=== PATIENT | female | born 1990 | race Caucasian/White ===

== ENCOUNTER 2019-10-08 06:48 | Outpatient (CLI) | payer OTHER ==
--- NOTE | 2019-10-08 09:45 | Ultrasound Report ---
PROCEDURE: Pelvic w/Transvaginal INDICATIONS: UTERUS FIBROIDS TECHNIQUE: Real-time scanning was performed of the pelvic organs, with image documentation. Additional endovagi nal scanning was necessary due to incomplete visualization of the adnexal and endometrial structures by transabdominal scanning. COMPARISON: None. FINDINGS: Transabdominal scanning: Limited scanning through the kidneys shows no hydronephrosis. No pathologi c free abdominal or pelvic fluid. Endovaginal scanning: Uterus: Uterus is normal in size at 8.7 x 5.7 x 4.9 cm. There is a fundal posterior subserosal focu s of heterogeneous echogenicity measuring 35 x 27 x 31 mm. A similar-appearing focus in the mid anter ior subserosal region is identified measuring 22 x 18 x 21 mm. A third focus in the anterior lower ut erine subserosal segment is identified measuring 25 x 19 x 26 mm. The endometrium measures 4.3 mm in combined thickness. Ovaries: Right ovary measures 34 x 22 x 15 mm. Arterial and venous flow are identified. Less than 12 follicles are present. Left ovary measures 27 x 24 x 19 mm. Multiple follicles are identified. IMPRESSION: 1. Foci of heterogeneous echogenicity within the uterus suggestive of fibroids. Reviewed by: Analy Ann MD on 10/08/2019 9:44 AM PDT Approved by: Analy Ann MD on 10/08/2019 9:44 AM PDT Station ID: [id number]
== END 2019-10-08 06:49 | disposition home or self-care (01) ==
LOC: DI 06:48
PROVIDERS: ATTEND Obstetrics & Gynecology
DX: D25.9 Leiomyoma of uterus, unspecified (principal)
CPT/HCPCS: 76830; 76856

== ENCOUNTER 2019-10-14 11:20 | Outpatient (CLI) | payer OTHER ==
[2019-10-14 12:28] LABS: BASOPHILS % (AUTO) 0.6 %; EOSINOPHILS # (AUTO) 0.2 10^3/uL (0.0-0.7); EOSINOPHILS % (AUTO) 2.6 %; LYMPHOCYTES # (AUTO) 2.5 10^3/uL (1.5-3.5); LYMPHOCYTES % (AUTO) 36.2 %; MEAN CORPUSCULAR HEMOGLOBIN 33.4 pg (27.0-31.0); MEAN CORPUSCULAR HGB CONC 34.9 g/dL (32.0-36.0); MEAN CORPUSCULAR VOLUME 95.8 fL (81.0-99.0); MEAN PLATELET VOLUME 10.1 fL (7.9-10.8); MONOCYTES # (AUTO) 0.5 10^3/uL (0.0-1.0); MONOCYTES % (AUTO) 7.2 %; NEUTROPHILS # (AUTO) 3.7 10^3/uL (1.5-6.6); NEUTROPHILS % (AUTO) 53.1 %; PLT - PLATELET COUNT 323 10^3/uL (130-450); RED BLOOD COUNT 4.79 10^6/uL (4.20-5.40); WHITE BLOOD COUNT 6.9 x10^3/uL (4.8-10.8)
== END 2019-10-14 11:21 | disposition home or self-care (01) ==
LOC: LAB 11:20
PROVIDERS: ATTEND Obstetrics & Gynecology
DX: Z01.812 Encounter for preprocedural laboratory examination (principal); N94.6 Dysmenorrhea, unspecified; N87.1 Moderate cervical dysplasia; D25.9 Leiomyoma of uterus, unspecified; Z20.828 Contact with and (suspected) exposure to other viral communicable diseases
CPT/HCPCS: 81599; 85025

== ENCOUNTER 2019-10-16 08:53 | Day surgery (SDC) | payer OTHER ==
--- NOTE | 2019-10-14 11:21 | CONSULTATION NOTE ---
Consultation Report: I saw this young lady today in the pre-anesthesia office. She has a family history of Malignant Hyperthermia on her fathers side. She reports that she herself has never had any problems. She has had removal of "uterine fibroids" in 2017 at [facility] and did not have any anesthesia related complications. But, she does not know the type of anesthetic that was used. We will try to get the records from [facility]. If in case we are unable to obtains her previous anesthetic history, we will proceed with Total IV Anesthetic. I discussed the option of total IV anesthetic and avoiding all MH triggering agents. She very healthy otherwise.
[~2019-10-16 08:53] MED LIST: ACETAMINOPHEN 1,000 MG/100 ML 100 ML IV ONE; CEFAZOLIN SODIUM IN 0.9 % NACL 2 GM/100 ML BAG IV ONE; CELECOXIB 100 MG CAPSULE PO ONE; GABAPENTIN 400 MG CAPSULE ONE
[2019-10-16] MEDS ORDERED: ONDANSETRON 4 MG/2 ML VIAL IVP ONE (08:54)
[2019-10-16] MEDS ORDERED: GLYCOPYRROLATE 1 MG/5 ML VIAL IVP ONE (08:54)
[2019-10-16] MEDS ORDERED: HYDROmorphone 1 MG/ML CARPUJECT IVP ONE (08:54)
[2019-10-16] MEDS ORDERED: DEXAMETHASONE 4 MG/ML VIAL IVP ONE (08:54)
[2019-10-16] MEDS ORDERED: fentaNYL 100 MCG/2 ML VIAL IVP ONE (08:54)
[2019-10-16] MEDS ORDERED: SUGAMMADEX 200 MG/2 ML VIAL IVP ONE (08:54)
[2019-10-16] MEDS ORDERED: diphenhydrAMINE INJ 50 MG/ML VIAL IVP ONE (08:54)
[2019-10-16] MEDS ORDERED: ROCURONIUM 50 MG/5 ML VIAL IVP ONE (08:54)
[2019-10-16] MEDS ORDERED: PROPOFOL 200 MG/20 ML VIAL IVP ONE (08:54)
[2019-10-16] MEDS ORDERED: LIDOCAINE-MPF 2% 5 ML VIAL IM ONE (08:54)
[2019-10-16] MEDS ORDERED: MIDAZOLAM 2 MG/2 ML VIAL IVP ONE (08:54)
[2019-10-16] MEDS ORDERED: LACTATED RINGERS 1,000 ML IV ONE ×2 (08:57→15:39)
[2019-10-16 09:21] LABS: HCG UR QUAL NEGATIVE
--- NOTE | 2019-10-16 09:35 | ANESTHESIA ---
Pre-Anesthesia VS, & Labs - Diagnosis dysmenorrhea, fibroids - Procedure total laparoscopic hysterectomy Vital Signs: Temp Pulse Resp BP Pulse Ox 37.2 C 103 H 18 115/77 97 10/16/19 09:02 10/16/19 09:02 10/16/19 09:02 10/16/19 09:02 10/16/19 09:02 Height 5 ft 7 in Weight (kg) 79.5 kg - NPO >8 hours - Is Patient ?: No - Lab Results Current Lab Results: Laboratory Tests 10/16/19 09:15: POC Whole Bld Glucose 93 Home Medications and Allergies Fluticasone [Flonase] 1 sprays WALTER DAILY 10/14/19 Allergies/Adverse Reactions: Allergies Allergy/AdvReac Type Severity Reaction Status Date / Time cefprozil [From Cefzil] Allergy colitis Verified 10/14/19 10:03 cefuroxime [From Ceftin] Allergy colitis Verified 10/14/19 10:03 codeine Allergy Rash Verified 10/14/19 10:03 latex Allergy Respiratory Verified 10/14/19 10:03 Anes History & Medical History - Anesthetic History Anesthesia Complications: reports: No previous complications, Other-see comment (MH precautions with each one, positive FH via uncle) Family history of Malignant Hyperthermia: Reports (uncle) - Medical History Cardiovascular: reports: None Pulmonary: reports: Asthma (childhood) Gastrointestinal: reports: None Urinary: reports: None Musculoskeletal: reports: None Endocrine/Autoimmune: reports: None Skin: reports: None - Surgical History General: Colonoscopy Gynecologic: Other Exam General: Alert, Oriented x3 Dental: WNL Mouth Opening: Greater than 4 Fingerbreadths Neck Mobility: Normal Mallampati classification: I Thyromental Distance: greater than 6 cm Respiratory: Lungs clear Cardiovascular: Regular rate Plan Anesthesia Type: General Consent for Procedure(s) Verified and Reviewed: Yes Code Status: Attempt Resuscitation ASA classification: 1-Healthy patient Is this case an emergency?: No
[2019-10-16] MEDS ORDERED: LIDOCAINE 1%-EPI 1:100000 20 ML MDV SUBQ ONE ×2 (09:37)
[2019-10-16] MEDS ORDERED: BUPIVACAINE 0.5% PF 30 ML VIAL INFIL ONE ×2 (09:37)
[2019-10-16] MEDS ORDERED: LIDOCAINE 1%-EPI 1:100000 20 ML MDV ONE (09:55)
[2019-10-16] MEDS ORDERED: BUPIVACAINE 0.5% PF 30 ML VIAL ONE (09:55)
--- NOTE | 2019-10-16 10:20 | HISTORY & PHYSICAL EXAMINATION ---
HPI - History of Present Illness HPI Comment/Other: Heike Dorsey is a 28-year-old G0 here for a preop assessment for hysterectomy and cystoscopy. The patient was last seen in clinic on 09/10/2019 for a colposcopy. She has a long history of cervical dysplasia for which she underwent a LEEP in 2016. She has had abnormal Pap smears dating back to 2007. Her last Pap smear was followed with a colposcopy and that biopsy returned back with HARRY 1. She also has a long history of fibroids and dysfunctional uterine bleeding as well as ongoing pelvic pain. She had a hysteroscopic myomectomy several years ago. She has also undergone a laparoscopic resection of a dermoid cyst as well as a laparoscopic ablation of endometriosis. She has been requesting a hysterectomy for several years, but has been denied by multiple providers because she is nulligravid. As a result, her had a vasectomy because she does not desire childbearing and never has desired childbearing. After an extensive discussion at her prior visit and over the phone prior to this visit, the patient reports that she would like to have definitive management for persistent cervical dysplasia and chronic pelvic pain with a hysterectomy. She is clear that she does not desire childbearing and never has. She vocalizes understanding that she will be rendered incapable of after this procedure and she is not bothered by this fact. She has had a pelvic ultrasound on 10/07/2019 to assess her uterine structure. Uterus was normal size at 8.7 x 5.7 x 4.9 cm. She did have some subserosal fibroids, the largest is 3.5 cm in greatest dimension. No changes in health history since the time of prior exam other than as noted. Allergies: CODEINE (Critical) * SEPTIN (Critical) CEPACOL (Critical) * LATEX (Critical) Medications: CRYSELLE-28 0.3-30 MG-MCG ORAL TABLET (NORGESTREL-ETHINYL ESTRADIOL) Take one tablet by mouth once daily; Route: ORAL Problems: Preop exam (ICD-V72.84) (OFK05-T96.818) Fibroids, uterus (ICD-218.9) (ZNQ68-L18.9) HPV (ICD-079.4) (MKL58-X01.7) Cervical dysplasia, moderate (ICD-622.12) (ORC74-V98.1) Papanicolaou smear of cervix with low grade squamous intraepithelial lesion (LGSIL) (ICD-795.03) (ACC22-R03.612) Well woman exam (ICD-V72.3) (WRR84-E38.00) Risk Factors: Smoked Tobacco Use: Never smoker Smokeless Tobacco Use: Never Passive Smoke Exposure: no HIV High Risk Behavior: no Caffeine Use: 2 drinks per day Exercise: yes Times/wk: 5 Type of Exercise: various, walking, hiking, biking, weights Seatbelt Use: 100 % Sun Exposure: frequently Alcohol Use: yes Type: beer, wine Drinks per day: social Drug Use: no Vital Signs: Patient Profile: 28 Years Old Female Height: 67 inches Weight: 175 pounds BMI: 27.51 BP sittin / 73 Cuff size: regular Vitals Entered By: MARGARET Dawn (October 08, 2019 10:02 AM) Meds Reviewed: Done Allergies Reviewed: Done Questionnaire Would you like to become in the next year? No Are you currently using contraception? Yes Education provided to patient? Yes Completed by: joaquín Current contraception: Vasectomy End Method: Female sterilization, Vasectomy Past Medical History: History of ovarian teratoma Endometriosis Cervical dysplasia Past Surgical History: Laparoscopic ovarian cystectomy Laparoscopic ablation of endometriosis 2016 hysteroscopic myomectomy 2016 LEEP JOURNEYMAN MILLWRIGHT Review of Systems ROS Comments: As per HPI, otherwise remaining systems are negative. Physical Constitutional: No apparent distress. Head: Normocephalic and atraumatic. Eyes: No scleral icterus or conjunctival injection. Neck: No thyromegaly or cervical/supraclavicular lymphadenopathy. Cardiovascular: Regular rate and rhythm. Respiratory: Clear to auscultation bilaterally with normal respiratory effort. Abdomen: Soft, nontender, and nondistended. Extremities: Extremites are warm and well perfused with no lower extremity edema. Neurologic: Alert and oriented. Normal gait and coordination. Psych: Bright and reactive affect. Vagina: Pelvic exam was performed at prior visit. To recap, she had normal external female genitalia with normal Bartholin's, Ismay's, urethral meatus, and anus. Vagina was rugated, pink without abnormal lesions or discharge. Cervix: Cervix was nulliparous without lesions or discharge. Uterus: Uterus was small, mobile, and nontender. Adnexa: No adnexal masses or tenderness. Problem # 1: Preop Exam. We had an extensive discussion regarding the risks, benefits, and alternatives of the procedure. We will proceed with laparoscopic hysterectomy, likely a total laparoscopic hysterectomy with cystoscopy. Reviewed risks, benefits, and alternatives of the procedure. Risks include but are not limited to bleeding, infection, damage to nearby tissue and organs. We reviewed that on average blood loss is fairly minimal, but under certain circumstances it can be substantial enough that we may desire or recommend blood transfusion for her clinical well- being. We emphasized that we do take this decision lightly. Nationwide risks of blood transfusion include transmission of HIV is 1 in 2 million, risk of hepatitis is 1 in 1 million. These are very low risks. What is more common is almost like an allergic reaction to the proteins in the blood that we cannot match the patient to completely. This can look like difficulty breathing, hives, fever. This could be treated with medications as a rare outcome, but she should be aware that it exists. Infection risk is moderate given clean contaminate nature of the procedure and IV antibiotics will be given. Problem # 2: Preop Exam. Damage to nearby tissue and organs include risks to bladder, bowel, ureters, blood vessels, and nerves. Damage may be noted intraop at which point we would repair any damage in the moment which may result in a more complicated postoperative course. We reviewed that some injuries are not apparent until after the procedure at which point the patient would develop symptoms and may require return to the operating room. Again, reiterated that these are rare outcomes but she must be aware that they are possibilities. We also reviewed that we will be performing a cystoscopy to look at the integrity of the bladder and ureteral function after the procedure is completed. We also discussed that during her recovery period, she will be undergoing pelvic rest for 6 weeks and she will be restricted from limiting more than 10 pounds for 4 weeks. The patient signed [facility] consents regarding the fact that she will be compromising her fertility with this procedure. Again, she reiterated her confidence in moving forward with hysterectomy at this time. Written informed consents were obtained. She was provided with preoperative ord ers. We will proceed to the OR on October 16, 2019. Current Allergies: CODEINE (Critical) * SEPTIN (Critical) CEPACOL (Critical) * LATEX (Critical) Current Meds: CRYSELLE-28 0.3-30 MG-MCG ORAL TABLET (NORGESTREL-ETHINYL ESTRADIOL) Take one tablet by mouth once daily; Route: ORAL PMH/PSH - Past Medical History Cardiovascular: positive: None Respiratory: positive: Asthma (childhood) Endocrine/Autoimmune: positive: None GI: positive: None : positive: None HEENT: positive: Chronic vision loss Musculoskeletal: positive: None Derm: positive: None MRSA Hx?: No - Past Surgical History General: positive: Colonoscopy /JOURNEYMAN MILLWRIGHT: positive: Other Meds/Allgy - Home Medications Home Medications: Ambulatory Orders Medication Instructions Recorded Confirmed Fluticasone [Flonase] 1 sprays WALTER DAILY 10/14/19 - Allergies Allergies/Adverse Reactions: Allergies Allergy/AdvReac Type Severity Reaction Status Date / Time cefprozil [From Cefzil] Allergy colitis Verified 10/14/19 10:03 cefuroxime [From Ceftin] Allergy colitis Verified 10/14/19 10:03 codeine Allergy Rash Verified 10/14/19 10:03 latex Allergy Respiratory Verified 10/14/19 10:03 Exam - Vital Signs Vital Signs: Vital Signs x48h Temp Pulse Resp BP Pulse Ox 10/16/19 09:02 99.0 F 103 H 18 115/77 97 Results - Lab Results Other Lab Results: Lab Results x24hrs 10/16/19 10/16/19 Range/Units 09:15 09:00 POC Whole Bld Glucose 93 (70 - 100) mg/dL Ur Specific Roach 1.020 (1.002-1.030) Urine HCG, Qual NEGATIVE
[2019-10-16] MEDS ORDERED: METHYLENE BLUE 0.5% 50 MG/10 ML AMPULE ONE (11:27)
[2019-10-16] MEDS ORDERED: METHYLENE BLUE 0.5% 50 MG/10 ML AMPULE IR ONE (11:53)
[2019-10-16] MEDS ORDERED: SUGAMMADEX 500 MG/5 ML VIAL IVP ONE ×2 (15:11→15:12)
[2019-10-16] MEDS ORDERED: KETOROLAC 30 MG/ML VIAL IVP PRN (16:39)
[2019-10-16] MEDS ORDERED: SODIUM CHLORIDE FLUSH 0.9% 10 ML SYRINGE IVP PRN (16:39)
[2019-10-16] MEDS ORDERED: ONDANSETRON 4 MG/2 ML VIAL IVP PRN (16:42)
[2019-10-16] MEDS ORDERED: PHENOL THROAT SPRAY 177 ML MM PRN (16:42)
--- NOTE | 2019-10-16 16:46 | OPERATIVE REPORT ---
Operative Report - General Procedure Date: 10/16/19 Planned Procedure: Total laparoscopic hysterectomy vs laparoscopic assisted vaginal hysterectomy and bilateral salpingectomy with cystoscopy Pre-Op Diagnosis: Advanced cervical dysplasia and chronic pelvic pain Procedure Performed: Laparoscopic assisted vaginal hysterectomy and bilateral salpingectomy with cystoscopy Post Op Diagnosis: Same - Procedure Note Primary Surgeon: Bruna Lea MD Secondary Surgeon: Marlen Schmidt MD Anesthesia Provider: Francheska Amin CRNA Anesthesia Technique: General ET tube Pathology: Uterus and fallopian tubes IV Fluids (mL): 1,600 Estimated Blood Loss (mL): 150 Urine Output (mL): 400 Indications: Heike Dorsey is a 28-year-old G0 here for a preop assessment for hysterectomy and cystoscopy. The patient was last seen in clinic on 09/10/2019 for a colposcopy. She has a long history of cervical dysplasia for which she underwent a LEEP in 2016. She has had abnormal Pap smears dating back to 2007. Her last Pap smear was followed with a colposcopy and that biopsy returned back with HARRY 1. She also has a long history of fibroids and dysfunctional uterine bleeding as well as ongoing pelvic pain. She had a hysteroscopic myomectomy several years ago. She has also undergone a laparoscopic resection of a dermoid cyst as well as a laparoscopic ablation of endometriosis. She has been requesting a hysterectomy for several years, but has been denied by multiple providers because she is nulligravid. As a result, her had a vasectomy because she does not desire childbearing and never has desired childbearing. After an extensive discussion at her prior visit and over the phone prior to this visit, the patient reports that she would like to have definitive management for persistent cervical dysplasia and chronic pelvic pain with a hysterectomy. Findings: Enlarged uterus with fibroids on serosal. Normal left tube and ovary. Right tube was adherent to the infundibulo-pelvic ligament and the right ovary had a simple/physiologic cyst. Normal survey of the pelvic with normal appendix. Post procedural cystoscopy showed bilateral ureteral jets and intact bladder mucosa without evidence of suture or trauma. Complications: none - Other Other Information/Narrative: Risks benefits and alternatives of the procedure were reviewed. Consent was again confirmed. Patient was brought to the operating room and underwent general anesthesia. She was placed in dorsal lithotomy position with legs resting in yellowfin stirrups. SCDs were in place and activated. Cefazolin 2 g IV was administered prior to start of procedure. She was prepped and draped in the usual sterile fashion. Surgical timeout was performed. Bimanual exam was performed. Sterile speculum was placed and Promotional Representative uterine manipulator was placed, confirming that the inner cup was flush with the vaginal fornices. A total of 50 cc of dilute methylene blue was backfilled into the Olmstead catheter and the catheter was clamped. The base of the umbilicus was anesthetized with intradermal injection of 0.25% Marcaine. A 5 mm skin incision was made with a scalpel. A 5 mm blunt trocar was inserted under direct visualization using Webtabort. Once the port was confirmed to be placed intraperitoneally, the abdomen was insufflated to 15 mmHg with CO2 gas Exploration of the abdomen and pelvis was confirmed that no injury was sustained with placement of the trocar. Two additional 5 mm ports were placed in the right and left lower quadrants, taking care to avoid the epigastric arteries, while under direct visualization via laparoscopic guidance. The abdomen was explored with the laparoscope, with findings as noted. Ureters were identified bilaterally. The left Fallopian tube was grasped and elevated and resected from the underlying mesosalpinx with the LigaSure bipolar sealing and cutting device. The uterine ovarian ligament was transected using the LigaSure bipolar device. A bladder flap was mobilized by dividing the round ligaments using the bipolar cutting forceps, and the peritoneum on the vesicouterine fold was incised to mobilize the bladder. Once the colpotomy ring was skeletonized and in position, the uterine arteries were sealed using the bipolar forceps at the level of the colpotomy ring. This was repeated on the right aspect of the uterus in the same manner aside form the fact the right tube was adherent to the infundibulopelvic ligament. The tube was transected at the isthmus and the distal portion of the tube was carefully dissected off the ovary and IP moving from proximal to distal end. It was removed from the surgical field through the laparoscopic port. It w as set aside and later sent with the uterus to pathology. Colpotomy was performed using the monopolar hook, resulting in separation of the uterus and attached tubes. The right tube had been transected and removed separately through a lateral port as noted above. The uterus and left tube were then delivered through the vagina. Attention was then turned to the vaginal cuff closure. A 10 mm port was placed at the right lateral port site. A second 5 mm laparoscopic port was placed on the right lateral side of the abdomen. V-lock suture was passed into the pelvis through the 10 mm port. The vaginal cuff was closed with a running suture. The depth of the closure was not adequate per surgeon's assessment. The closure was then reinforced with a vaginal closure. A weighted speculum was placed in the vagina. Long Allis clamps were used to grasp the edges of the vaginal cuff. The vaginal cuff closure was then reinforced fashion using interrupted piqxxl-vz-duart suture using 0 Vicryl. Good hemostasis was noted. We again returned to the abdominal surgical field after removing outer gloves. The abdomen was again insufflated. The vaginal cuff was visualized internally and noted to have good hemostasis. The right lateral pelvic sidewall was raw in appearance but had no active bleeding. In an abundance of caution, Surgicel was applied to the left lateral pelvic sidewall. Good hemostasis was noted. The abdomen was partially desufflated. Pedicles were observed under decreased pressure and good hemostasis was again confirmed. We then performed a cystoscopy. Cystoscope was inserted through the urethra and the bladder was insufflated with normal saline. Bilateral ureteral jets were observed. Survey of the bladder showed the mucosa to be devoid of suture or trauma. Bladder was drained and cystoscope was removed. All instruments were removed from the abdomen. Skin was closed with interrupted subcuticular stitches using 4-0 Monocryl. Dermabond was applied over the suture sites. The final sponge needle and instrument counts were correct at completion of the procedure patient was awakened taken to the postanesthesia care unit in stable condition. Dr. Schmidt assisted with the camera, retraction, and the right sided portion of the hysterectomy.
[2019-10-16] MEDS: ACETAMINOPHEN 500 MG TABLET PO SCH (17:52)
[2019-10-16] MEDS: SODIUM CHLORIDE FLUSH 0.9% 10 ML SYRINGE IVP SCH (18:09)
[2019-10-16] MEDS: oxyCODONE 5 MG TABLET PO PRN (23:07)
[2019-10-17] MEDS: ACETAMINOPHEN 500 MG TABLET PO SCH ×2 (00:35→08:50)
[2019-10-17] MEDS: SODIUM CHLORIDE FLUSH 0.9% 10 ML SYRINGE IVP SCH ×2 (00:36→08:13)
[2019-10-17] MEDS ORDERED: IBUPROFEN 600 MG TABLET PO PRN (01:05)
[2019-10-17 05:29] LABS: BASOPHILS # (AUTO) 0.1 10^3/uL (0.0-0.1); BASOPHILS % (AUTO) 0.3 %; HGB - HEMOGLOBIN 13.8 g/dL (12.0-16.0); LYMPHOCYTES # (AUTO) 1.8 10^3/uL (1.5-3.5); MEAN CORPUSCULAR HEMOGLOBIN 33.3 pg (27.0-31.0); MEAN CORPUSCULAR HGB CONC 34.7 g/dL (32.0-36.0); MEAN CORPUSCULAR VOLUME 95.9 fL (81.0-99.0); MEAN PLATELET VOLUME 10.2 fL (7.9-10.8); MONOCYTES # (AUTO) 1.1 10^3/uL (0.0-1.0); MONOCYTES % (AUTO) 6.4 %; NEUTROPHILS # (AUTO) 14.4 10^3/uL (1.5-6.6); NEUTROPHILS % (AUTO) 82.6 %; PLT - PLATELET COUNT 287 10^3/uL (130-450); RED BLOOD COUNT 4.15 10^6/uL (4.20-5.40); RED CELL DISTRIBUTION WIDTH 11.9 % (12.0-15.0); WHITE BLOOD COUNT 17.5 x10^3/uL (4.8-10.8)
[2019-10-17] MEDS: oxyCODONE 5 MG TABLET PO PRN ×2 (08:12→11:31)
[2019-10-17 08:18] VITALS: BP 111/65
[2019-10-17] MEDS ORDERED: ENOXAPARIN 40 MG/0.4 ML SYRINGE SUBQ SCH (09:00)
--- NOTE | 2019-10-17 09:45 | PROVIDER PROGRESS NOTE ---
Subjective - General Procedure Date: 10/16/19 Post Op Days: 1 Procedure Performed: [facility] - Review of Systems Wound/Incisions: positive: Healing well - Other Other Information/Narrative: Patient has been up and ambulating. She is tolerating po. Olmstead removed this am but has not yet voided. Pain is not well managed with sharp pain at her 10 mm incision. Otherwise no pain. Has had tylenol, ibuprofen, oxycodone aout 1 hour ago and pain is more manageable. + Flatus Objective - Patient Data Reviewed Vital Signs: Yes Vital Signs: Vital Signs x48h Temp Pulse Resp BP Pulse Ox 10/17/19 08:17 97.9 F 86 16 111/65 97 10/17/19 05:06 97.9 F 56 L 18 103/69 96 Weight: Weight 10/15/19 10/16/19 10/17/19 23:59 23:59 23:59 Weight (kg) 79.5 kg Intake & Output: Intake and Output Totals x24h 10/15/19 10/16/19 10/17/19 23:59 23:59 23:59 Intake Total 1600 500 Output Total 2150 1200 Balance -550 -700 - Lab Results Lab Results: 10/17/19 04:20 Other Lab Results: Lab Results x24hrs 10/17/19 Range/Units 04:20 WBC 17.5 H (4.8-10.8) x10^3/uL RBC 4.15 L (4.20-5.40) 10^6/uL Hgb 13.8 (12.0-16.0) g/dL Hct 39.8 (37.0-47.0) % MCV 95.9 (81.0-99.0) fL MCH 33.3 H (27.0-31.0) pg MCHC 34.7 (32.0-36.0) g/dL RDW 11.9 L (12.0-15.0) % Plt Count 287 (130-450) 10^3/uL MPV 10.2 (7.9-10.8) fL Neut # (Auto) 14.4 H (1.5-6.6) 10^3/uL Lymph # (Auto) 1.8 (1.5-3.5) 10^3/uL [place] # (Auto) 1.1 H (0.0-1.0) 10^3/uL Eos # (Auto) 0.0 (0.0-0.7) 10^3/uL Baso # (Auto) 0.1 (0.0-0.1) 10^3/uL Absolute Nucleated RBC 0.00 x10^3/uL Nucleated RBC % 0.0 /100WBC - Current Medications Current Medications: Current Medications Generic Name Dose Route Start Last Admin Trade Name Freq PRN Reason Stop Dose Admin Acetaminophen 1,000 mg 10/16/19 17:00 10/17/19 08:50 Tylenol PO 1,000 mg Q8H TERESA Administration Enoxaparin Sodium 40 mg 10/17/19 09:00 10/17/19 08:13 Lovenox SUBQ Not Given DAILY [facility] Ibuprofen 600 mg 10/17/19 01:05 10/17/19 08:46 Motrin PO 600 mg Q6HR PRN Administration PAIN Oxycodone HCl 5 mg 10/16/19 16:42 10/17/19 08:12 Roxicodone PO 5 mg Q4HR PRN Administration PAIN Sodium Chloride 10 ml 10/16/19 17:00 10/17/19 08:13 Normal Saline Flush 0.9% IVP Not Given 0100,0900,1700 [facility] - Physical Exam Wound/Incisions: positive: Other (port sites CDI) General Appearance: positive: No acute distress Neck: positive: Nml inspection Respiratory: positive: No respiratory distress Cardiovascular: positive: Other (RR) Abdomen: positive: Non-tender, No distention, Other (Point tenderness at 10 mm port sire) Back: positive: Nml inspection Skin: positive: Color nml Extremities: positive: Non-tender, No pedal edema Neurologic/Psychiatric: positive: Oriented x3 Impression/Plan - Problem List Problem List: POD#1 s/p ::LAVH Having pain at port site. Adding gabapentin to pain regimen Has not yet voided Once able to void, OK to DC home
[2019-10-17] MEDS ORDERED: GABAPENTIN 300 MG CAPSULE PO SCH (10:00)
[2019-10-17 10:08] LABS: BASOPHILS % (AUTO) 0.3 %; HGB - HEMOGLOBIN 13.9 g/dL (12.0-16.0); LYMPHOCYTES # (AUTO) 2.9 10^3/uL (1.5-3.5); LYMPHOCYTES % (AUTO) 18.4 %; MEAN CORPUSCULAR HEMOGLOBIN 32.8 pg (27.0-31.0); MEAN CORPUSCULAR HGB CONC 34.1 g/dL (32.0-36.0); MEAN CORPUSCULAR VOLUME 96.2 fL (81.0-99.0); MEAN PLATELET VOLUME 9.7 fL (7.9-10.8); MONOCYTES % (AUTO) 6.5 %; NEUTROPHILS # (AUTO) 11.8 10^3/uL (1.5-6.6); NEUTROPHILS % (AUTO) 74.3 %; PLT - PLATELET COUNT 270 10^3/uL (130-450); RED BLOOD COUNT 4.24 10^6/uL (4.20-5.40); RED CELL DISTRIBUTION WIDTH 12.2 % (12.0-15.0); WHITE BLOOD COUNT 15.8 x10^3/uL (4.8-10.8)
== END 2019-10-17 12:05 | disposition home or self-care (01) ==
LOC: SDS 08:53 → MS2 16:30 → SDS 10-17 12:05
PROVIDERS: ATTEND Obstetrics & Gynecology
PROC: 0UB74ZZ Excision of Bilateral Fallopian Tubes, Percutaneous Endoscopic Approach (ICD-10-PCS; 2019-10-16)
PROC: 0UT94ZZ Resection of Uterus, Percutaneous Endoscopic Approach (ICD-10-PCS; principal; 2019-10-16 10:15)
DX: N87.1 Moderate cervical dysplasia (principal); N94.6 Dysmenorrhea, unspecified; R10.2 Pelvic and perineal pain; D25.2 Subserosal leiomyoma of uterus
CPT/HCPCS: 36415; 58571; 81025; 85025; A9270; J0131; J0690; J1170; J1200; J7120

== ENCOUNTER 2021-02-01 13:59 | Outpatient (CLI) | payer OTHER ==
--- NOTE | 2021-02-01 14:40 | XRAY Report ---
PROCEDURE: Foot 3 View RT INDICATIONS: SPRAIN OF R FOOT TECHNIQUE: 3 views of the foot were acquired. COMPARISON: None. FINDINGS: BONES: No acute, displaced fracture or dislocation. SOFT TISSUES: No focal abnormality. IMPRESSION: 1.No acute osseous abnormality. Reviewed by: Niko Bernabe MD on 02/01/2021 2:39 PM PDT Approved by: Niko Bernabe MD on 02/01/2021 2:39 PM PDT Station ID: [id number]
== END 2021-02-01 23:59 ==
LOC: DI.N 13:59
PROVIDERS: ATTEND Physician Assistant Medical
DX: S93.601A Unspecified sprain of right foot, initial encounter (principal)

== ENCOUNTER 2021-08-03 08:00 | Outpatient (CLI) | payer OTHER | END 2021-08-03 08:01 | disposition home or self-care (01) | LOC: LAB.N 08:00 | PROVIDERS: ATTEND Family Medicine | DX: J01.90 Acute sinusitis, unspecified (principal); Z20.822 Contact with and (suspected) exposure to COVID-19 ==

== ENCOUNTER 2022-02-10 15:41 | Outpatient (CLI) | payer OTHER ==
[2022-02-11 04:08] LABS: HBsAG SCREEN Negative (Negative); HIV SCREEN 4TH GENERATION Non Reactive (Non Reactive)
[2022-02-11 05:10] LABS: HCV AB <0.1 s/co ratio (0.0-0.9)
[2022-02-11 06:09] LABS: RPR Non Reactive (Non Reactive)
[2022-02-11 07:09] LABS: HSV 1 IGG TYPE SPEC <0.91 index (0.00-0.90); HSV 2 IGG TYPE SPEC <0.91 index (0.00-0.90)
== END 2022-02-10 15:42 | disposition home or self-care (01) ==
LOC: LAB 15:41
PROVIDERS: ATTEND Nurse Practitioner
DX: Z11.3 Encounter for screening for infections with a predominantly sexual mode of transmission (principal)
CPT/HCPCS: 36415; 86592; 86695; 86696; 86803; 87340; 87389

== ENCOUNTER 2022-02-10 16:00 | Outpatient (CLI) | payer OTHER ==
[2022-02-11 23:49] LABS: CHLAMYDIA TRACHOMATIS DNA NEGATIVE (NEGATIVE); NEISSERIA GONORRHOEAE DNA NEGATIVE (NEGATIVE); TRICHOMONAS VAGINALIS DNA NEGATIVE (NEGATIVE)
== END 2022-02-10 23:59 | disposition home or self-care (01) ==
LOC: LAB.R 16:00
PROVIDERS: ATTEND Nurse Practitioner
DX: Z11.3 Encounter for screening for infections with a predominantly sexual mode of transmission (principal)
CPT/HCPCS: 87491; 87591; 87661